=== PATIENT | female | born 1990 | race American Indian/Alaskan Native ===

== ENCOUNTER 2021-10-21 19:12 | Outpatient (CLI) | payer BC, MEDICAID ==
[2021-10-21 21:08] VITALS: BP 129/78
--- NOTE | 2021-10-21 23:27 | Ultrasound Report ---
US OB limited INDICATION / CLINICAL INFORMATION: Full FIDE, presentation COMPARISON: None available. TECHNIQUE: Using a transcutaneous probe, multiple grayscale, color Doppler, and spectral Doppler imag es of the uterus and fetus were captured and stored. FINDINGS: Clinical estimated gestational age based on last menstrual period of 01/18/2021 is 39 weeks 3 days. E DC 10/25/2021. A single cephalic fetus is presently heart rate 135 bpm. Amniotic fluid index is 8.4 cm, within normal limits. IMPRESSION: 1. Amniotic fluid index is within normal limits measuring 8.4 cm. 2. Single living fetus. Signer Name: Uriel Starr II, MD Signed: 10/21/2021 11:22 PM Workstation Name: [id number]
== END 2021-10-21 23:06 | disposition home or self-care (01) ==
LOC: TRG 19:12 → APU 20:57 → TRG 23:06
PROVIDERS: ATTEND Obstetrics & Gynecology
DX: O42.913 Preterm premature rupture of membranes, unspecified as to length of time between rupture and onset of labor, third trimester (principal); Z3A.35 35 weeks gestation of pregnancy
CPT/HCPCS: 36415; 76815; 84112

== ENCOUNTER 2021-10-22 18:17 | Inpatient (IN) | payer BC, MEDICAID ==
[2021-10-22] MEDS ORDERED: ONDANSETRON 4 MG/2 ML INJ IV PRN (20:49)
[2021-10-22] MEDS ORDERED: OXYTOCIN 10 UNIT/1 ML INJ IM PRN (20:49)
[2021-10-22] MEDS ORDERED: CARBOPROST TROMETHAMINE 250 MCG/1 ML INJ IM PRN (20:49)
[2021-10-22] MEDS ORDERED: LIDOCAINE (2%) 20 MG/1 ML VIAL 20 ML MDV INFILTRATI ONE (20:49)
[2021-10-22] MEDS ORDERED: miSOPROStol 200 MCG TAB PR PRN (20:49)
[2021-10-22] MEDS ORDERED: TERBUTALINE 1 MG/1 ML INJ SUB-Q PRN (20:49)
[2021-10-22] MEDS ORDERED: MINERAL OIL 30 ML ORAL LIQD PO PRN (20:49)
[2021-10-22] MEDS ORDERED: BUTORPHANOL 2 MG/1 ML INJ IV PRN (20:49)
[2021-10-22] MEDS ORDERED: LOPERAMIDE 2 MG CAP PO PRN (20:49)
[2021-10-22] MEDS ORDERED: ePHEDrine SULFATE 50 MG/1 ML INJ IV PRN (20:49)
[2021-10-22] MEDS ORDERED: ACETAMINOPHEN 325 MG TAB PO PRN (20:49)
[2021-10-22] MEDS ORDERED: fentaNYL 100 MCG/2 ML INJ IV PRN (20:49)
[2021-10-22] MEDS ORDERED: METHYLERGONOVINE MALEATE 0.2 MG/ML VIAL IM PRN (20:49)
[2021-10-22] MEDS ORDERED: OXYTOCIN DRIP 30 UNITS/500 ML BAG IV SCH ×2 (21:00)
--- NOTE | 2021-10-22 21:05 | History and Physical Report ---
History of Present Illness Date of examination: 10/22/21 Chief complaint: leaking fluid History of present illness: EDC Confirmation: 10/27/2021 Past History : 4 Spont. Ab: 2 # 1 Delivery date: 2006 Delivery type: EAB # 2 Delivery date: 2010 Delivery type: Delivery location: [place] Comments: No complications # 3 Delivery date: 2020 Delivery type: SAB Comments: Medical Past Medical History: Reviewed and updated today: Denies Past Surgical History: Reviewed and updated today: negative General Comments - FH: Mother- HTN Father- HTN, CHF () Risk Factors: Smoked Tobacco Use: Never smoker Smokeless Tobacco Use: Never Passive Smoke Exposure: no HIV High Risk Behavior: no Exercise: no Seatbelt Use: 100 % No Dietary Counseling Reason: pn yes Alcohol Use: no Drug Use: yes Drug of Choice: marijuana Past Medical History Anesthesia Complications: negative Anemia: negative Autoimmune Disorder: negative Bleeding Disorder: negative Blood Transfusions: negative Breast Disease: negative Diabetes: negative Heart Disease: negative Hypertension: negative Hepatitis/Liver Disease: negative Kidney Disease/UTI: negative Neurologic/Epilepsy/Migraines: negative Phlebitis/Varicosities: negative Psychiatric: negative Pulmonary Disease/Asthma: negative Thyroid Disease: negative Hospitalizations: negative Surgery (Non-director of guidance in public schools): negative Abnormal PAP: negative Uterine Anomaly: negative Uterine Surgery (not C/S): negative Family Hx: Mother- HTN Father- HTN, CHF () Infection History Hx of STD: none HIV Risk Eval: no Personal hx. of genital herpes: no Genetic History Congenital Heart Defect: Mom: no Dad: no David Disease: Mom: no Dad: no Thalassemia Mom: no Dad: no Neural Tube Defect Mom: no Dad: no Down's Syndrome Mom: no Dad: no Mateus-Sachs Mom: no Dad: no Sickle Cell Disease/Trait Mom: no Dad: no Hemophilia Mom: no Dad: no Muscular Dystrophy Mom: no Dad: no Cystic Fibrosis Mom: no Dad: no Gladwin Chorea Mom: no Dad: no Mental Retardation Mom: no Dad: no Fragile X Mom: no Dad: no Other Genetic/Chromosomal Disorder Mom: no Dad: no Child w/other defect Mom: no Dad: no Enviromental Exposures Xray Exposure: no Medication, drug, or alcohol use since LMP: no Chemical/Other Exposure: no Exposure to Cat Liter: no Hx of Parvovirus (Fifth Disease): no Occupational Exposure to Children: none Past History Past Medical History: other (see HPI) Past Surgical History: other (see HPI) 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: other (see HPI) Family/Genetic History: other (see HPI) - Obstetrical History Expected Date of Delivery: 10/27/21 Actual Gestation: 39 Week(s) 2 Day(s) : 4 Para: 1 Hx # Term Pregnancies: 1 Number of Pregnancies: 0 Spontaneous Abortions: 1 Induced : 1 Number of Living Children: 1 Medications and Allergies Allergies Allergy/AdvReac Type Severity Reaction Status Date / Time No Known Allergies Allergy Unverified 10/21/21 22:53 Active Meds: Active Medications Acetaminophen (Acetaminophen 325 Mg Tab) 650 mg PO Q4H PRN PRN Reason: Pain, Mild (1-3) Butorphanol Tartrate (Butorphanol 2 Mg/1 Ml Inj) 1 mg IV Q2H PRN PRN Reason: Pain, Moderate(4-6) LABOR PAIN Carboprost Tromethamine (Carboprost Tromethamine 250 Mcg/1 Ml Inj) 250 mcg IM ONCE PRN PRN Reason: Uterine Bleeding Ephedrine Sulfate (Ephedrine Sulfate 50 Mg/1 Ml Inj) 10 mg IV Q2M PRN PRN Reason: Hypotension Fentanyl (Fentanyl 100 Mcg/2 Ml Inj) 100 mcg IV Q2H PRN PRN Reason: Pain,Severe (7-10) LABOR PAIN Oxytocin/Sodium Chloride (Pitocin/Ns 30 Unit/500ml) 30 units in 500 mls @ 2 mls/hr IV TITR LORA; Protocol Lactated Ringer's (Lactated Ringers) 1,000 mls @ 125 mls/hr IV DIRECT LORA Oxytocin/Sodium Chloride (Pitocin/Ns 30 Unit/500ml) 30 units in 500 mls @ 40 mls/hr IV TITR LORA; Protocol Lidocaine (Lidocaine (2%) 20 Mg/1 Ml Vial 20 Ml Mdv) 20 ml INFILTRATI ONCE ONE Stop: 10/22/21 20:50 Loperamide HCl (Loperamide 2 Mg Cap) 2 mg PO ONCE PRN PRN Reason: give with Hemabate Methylergonovine Maleate (Methylergonovine Maleate 0.2 Mg/Ml Vial) 0.2 mg IM ONCE PRN PRN Reason: Uterine Bleeding Mineral Oil (Mineral Oil 30 Ml Oral Liqd) 30 ml PO QHS PRN PRN Reason: Constipation Misoprostol (Misoprostol 200 Mcg Tab) 800 mcg SD ONCE PRN PRN Reason: Uterine Bleeding Ondansetron HCl (Ondansetron 4 Mg/2 Ml Inj) 4 mg IV Q8H PRN PRN Reason: Nausea And Vomiting Oxytocin (Oxytocin 10 Unit/1 Ml Inj) 10 unit IM ONCE PRN PRN Reason: Uterine Bleeding Terbutaline Sulfate (Terbutaline 1 Mg/1 Ml Inj) 0.25 mg SUB-Q ONCE PRN PRN Reason: Hyperstimulation/Hypertonicity Review of Systems All systems: negative - Vital Signs Vital signs: Vital Signs Pulse BP 88 125/76 10/22/21 19:32 10/22/21 19:32 Temp Pulse Resp BP Pulse Ox 97.9 F 85 125/76 96 10/22/21 19:38 10/22/21 20:58 10/22/21 19:32 10/22/21 20:58 - Physical Exam Breasts: Positive: deferred Cardiovascular: Regular rate Lungs: Positive: Clear to auscultation, Normal air movement Abdomen: Positive: normal appearance, soft Genitourinary (Female): Positive: normal external genitalia, normal perenium Vulva: both: normal Vagina: Positive: normal moisture Extremities: Positive: normal - Obstetrical FHR: category 1 Uterine Contraction Monitor Mode: External Cervical Dilatation: 2 (Posterior) Cervical Effacement Percentage: 50 station: -2 Uterine Contraction Pattern: Irregular Uterine Contraction Intensity: Mild Results Abnormal lab results 10/22/21 Range/Units 19:42 Membranes Rupture Positive A (Negative) All other labs normal. Assessment and Plan 31y/o @ 39+ weeks c/o leaking fluid x 24hrs. Pt seen in triage yesterday with NEG rom plus and normal FIDE. She is admitted tonight with SROM - no obvious signs of rupture but ROM plus POS. SVE done with scant clear fluid. GBS +. records printed to L&D unit. Admission orders in EMR. Will start pitocin to augment labor d/t SROM of unknown time. All questions addressed with patient, Epidural PRN. - Patient Problems (1) Positive GBS test Current Visit: Yes Status: Acute (2) SROM (spontaneous rupture of membranes) Current Visit: Yes Status: Acute Plan to address problem: Amp q4hrs until delivery Limit SVEs Monitor temp per protocol (3) 39 weeks gestation of Current Visit: Yes Status: Acute
[2021-10-22 21:35] LABS: Hematocrit 37.7 % (30.3-42.9); Hemoglobin 12.5 gm/dl (10.1-14.3); Mean Corpuscular HGB Conc 33 % (30-34); Mean Corpuscular Volume 92 fl (79-97); Platelet Count 237 K/mm3 (140-440); Red Blood Count 4.11 M/mm3 (3.65-5.03); Red Cell Distribution Width 14.7 % (13.2-15.2)
[2021-10-22] MEDS ORDERED: AMPICILLIN/NS 2 GM/100 ML 2 GM/100 ML BAG IV ONE (22:00)
[2021-10-22] MEDS: LACTATED RINGERS 1,000 ML IV SCH (23:09)
[2021-10-23] MEDS: AMPICILLIN/NS 1 GM/50 ML 1 GM/50 ML BAG IV SCH ×2 (06:10→10:35)
--- NOTE | 2021-10-23 07:23 | Progress Note ---
Assessment and Plan A: 31 y.o. @ 39.3 wks, unknown SROM time. - Patient Problems (1) 39 weeks gestation of Current Visit: Yes Status: Acute Plan to address problem: Continue to monitor status through EFM. (2) SROM (spontaneous rupture of membranes) Current Visit: Yes Status: Acute Plan to address problem: Continue to monitor maternal temperatures. Limit vaginal exams. Continue to monitor progress of labor. Increase Pitocin per protocol. Subjective - Subjective Date of service: 10/23/21 Principal diagnosis: IUP @ 39.3 wks, SROM Interval history: Currently not in pain. Not feeling contractions. Patient reports: loss of fluid, vaginal bleeding (Describes as spotting. ) Objective - Vital Signs Vital Signs: Vital Signs - 12hr 10/22/21 10/22/21 10/22/21 19:32 19:33 19:38 Temperature 97.9 F Pulse Rate 88 91 H 89 Respiratory Rate Blood Pressure 125/76 O2 Sat by Pulse 96 96 Oximetry O2 Sat by Pulse Oximetry [ Bilateral] 10/22/21 10/22/21 10/22/21 19:43 19:48 19:53 Temperature Pulse Rate 86 91 H 92 H Respiratory Rate Blood Pressure O2 Sat by Pulse 97 96 96 Oximetry O2 Sat by Pulse Oximetry [ Bilateral] 10/22/21 10/22/21 10/22/21 19:58 20:03 20:08 Temperature Pulse Rate 87 83 87 Respiratory Rate Blood Pressure O2 Sat by Pulse 95 96 96 Oximetry O2 Sat by Pulse Oximetry [ Bilateral] 10/22/21 10/22/21 10/22/21 20:13 20:18 20:23 Temperature Pulse Rate 89 85 84 Respiratory Rate Blood Pressure O2 Sat by Pulse 95 96 97 Oximetry O2 Sat by Pulse Oximetry [ Bilateral] 10/22/21 10/22/21 10/22/21 20:28 20:29 20:33 Temperature Pulse Rate 84 96 H 86 Respiratory Rate Blood Pressure O2 Sat by Pulse 95 93 95 Oximetry O2 Sat by Pulse Oximetry [ Bilateral] 10/22/21 10/22/21 10/22/21 20:43 20:47 20:48 Temperature Pulse Rate 82 85 86 Respiratory Rate Blood Pressure O2 Sat by Pulse 96 94 96 Oximetry O2 Sat by Pulse Oximetry [ Bilateral] 10/22/21 10/22/21 10/22/21 20:53 20:58 21:03 Temperature Pulse Rate 88 85 90 Respiratory Rate Blood Pressure O2 Sat by Pulse 96 96 97 Oximetry O2 Sat by Pulse Oximetry [ Bilateral] 10/22/21 10/22/21 10/22/21 21:08 21:13 21:18 Temperature Pulse Rate 88 85 85 Respiratory Rate Blood Pressure O2 Sat by Pulse 97 96 97 Oximetry O2 Sat by Pulse Oximetry [ Bilateral] 10/22/21 10/22/21 10/22/21 21:23 21:28 21:33 Temperature Pulse Rate 90 90 86 Respiratory Rate Blood Pressure O2 Sat by Pulse 96 98 97 Oximetry O2 Sat by Pulse Oximetry [ Bilateral] 10/22/21 10/22/21 10/22/21 21:38 21:43 21:48 Temperature Pulse Rate 87 86 88 Respiratory Rate Blood Pressure O2 Sat by Pulse 97 97 97 Oximetry O2 Sat by Pulse Oximetry [ Bilateral] 10/22/21 10/22/21 10/22/21 21:53 21:58 22:03 Temperature Pulse Rate 91 H 85 86 Respiratory Rate Blood Pressure O2 Sat by Pulse 96 96 95 Oximetry O2 Sat by Pulse Oximetry [ Bilateral] 10/22/21 10/22/21 10/23/21 22:08 23:14 00:21 Temperature 98.4 F Pulse Rate 93 H 75 Respiratory 16 Rate Blood Pressure O2 Sat by Pulse 95 96 96 Oximetry O2 Sat by Pulse 95 Oximetry [ Bilateral] 10/23/21 10/23/21 10/23/21 00:26 00:31 00:36 Temperature Pulse Rate 82 80 76 Respiratory Rate Blood Pressure O2 Sat by Pulse 94 97 96 Oximetry O2 Sat by Pulse Oximetry [ Bilateral] 10/23/21 10/23/21 10/23/21 00:41 00:46 00:51 Temperature Pulse Rate 76 82 76 Respiratory Rate Blood Pressure O2 Sat by Pulse 97 96 96 Oximetry O2 Sat by Pulse Oximetry [ Bilateral] 10/23/21 10/23/21 10/23/21 00:56 01:01 01:06 Temperature Pulse Rate 82 76 77 Respiratory Rate Blood Pressure O2 Sat by Pulse 97 96 96 Oximetry O2 Sat by Pulse Oximetry [ Bilateral] 10/23/21 10/23/21 10/23/21 01:11 01:16 01:21 Temperature Pulse Rate 76 76 74 Respiratory Rate Blood Pressure O2 Sat by Pulse 97 96 97 Oximetry O2 Sat by Pulse Oximetry [ Bilateral] 10/23/21 10/23/21 10/23/21 01:26 01:31 01:32 Temperature Pulse Rate 69 83 75 Respiratory Rate Blood Pressure O2 Sat by Pulse 96 96 94 Oximetry O2 Sat by Pulse Oximetry [ Bilateral] 10/23/21 10/23/21 10/23/21 01:36 01:41 01:58 Temperature Pulse Rate 76 73 78 Respiratory Rate Blood Pressure O2 Sat by Pulse 96 95 95 Oximetry O2 Sat by Pulse Oximetry [ Bilateral] 10/23/21 10/23/21 10/23/21 02:01 02:03 02:08 Temperature Pulse Rate 71 73 75 Respiratory Rate Blood Pressure O2 Sat by Pulse 94 97 96 Oximetry O2 Sat by Pulse Oximetry [ Bilateral] 10/23/21 10/23/21 10/23/21 02:13 02:18 02:23 Temperature Pulse Rate 70 70 87 Respiratory Rate Blood Pressure O2 Sat by Pulse 97 96 96 Oximetry O2 Sat by Pulse Oximetry [ Bilateral] 10/23/21 10/23/21 10/23/21 02:28 02:33 02:34 Temperature Pulse Rate 73 75 79 Respiratory Rate Blood Pressure O2 Sat by Pulse 96 94 94 Oximetry O2 Sat by Pulse Oximetry [ Bilateral] 10/23/21 10/23/21 10/23/21 02:38 02:39 02:43 Temperature Pulse Rate 74 82 66 Respiratory Rate Blood Pressure O2 Sat by Pulse 95 93 95 Oximetry O2 Sat by Pulse Oximetry [ Bilateral] 10/23/21 10/23/21 10/23/21 02:44 02:48 02:50 Temperature Pulse Rate 68 70 70 Respiratory Rate Blood Pressure O2 Sat by Pulse 94 95 94 Oximetry O2 Sat by Pulse Oximetry [ Bilateral] 10/23/21 10/23/21 10/23/21 02:53 02:58 03:03 Temperature Pulse Rate 69 71 67 Respiratory Rate Blood Pressure O2 Sat by Pulse 95 95 96 Oximetry O2 Sat by Pulse Oximetry [ Bilateral] 10/23/21 10/23/21 10/23/21 03:08 03:13 03:18 Temperature Pulse Rate 69 69 72 Respiratory Rate Blood Pressure O2 Sat by Pulse 96 95 95 Oximetry O2 Sat by Pulse Oximetry [ Bilateral] 10/23/21 10/23/21 10/23/21 03:23 03:28 03:33 Temperature Pulse Rate 69 70 71 Respiratory Rate Blood Pressure O2 Sat by Pulse 96 96 96 Oximetry O2 Sat by Pulse Oximetry [ Bilateral] 10/23/21 10/23/21 10/23/21 03:38 03:43 03:48 Temperature Pulse Rate 70 74 75 Respiratory Rate Blood Pressure O2 Sat by Pulse 97 96 96 Oximetry O2 Sat by Pulse Oximetry [ Bilateral] 10/23/21 10/23/21 10/23/21 03:49 03:53 03:58 Temperature Pulse Rate 73 69 72 Respiratory Rate Blood Pressure O2 Sat by Pulse 94 96 96 Oximetry O2 Sat by Pulse Oximetry [ Bilateral] 10/23/21 10/23/21 10/23/21 04:03 04:08 04:13 Temperature Pulse Rate 73 69 67 Respiratory Rate Blood Pressure O2 Sat by Pulse 97 97 97 Oximetry O2 Sat by Pulse Oximetry [ Bilateral] 10/23/21 10/23/21 10/23/21 04:18 04:23 04:28 Temperature Pulse Rate 70 69 68 Respiratory Rate Blood Pressure O2 Sat by Pulse 96 96 97 Oximetry O2 Sat by Pulse Oximetry [ Bilateral] 10/23/21 10/23/21 10/23/21 04:33 04:38 04:43 Temperature Pulse Rate 72 68 84 Respiratory Rate Blood Pressure O2 Sat by Pulse 96 96 95 Oximetry O2 Sat by Pulse Oximetry [ Bilateral] 10/23/21 10/23/21 10/23/21 04:44 04:48 04:50 Temperature Pulse Rate 78 68 76 Respiratory Rate Blood Pressure O2 Sat by Pulse 94 94 93 Oximetry O2 Sat by Pulse Oximetry [ Bilateral] 10/23/21 10/23/21 10/23/21 04:53 04:58 05:03 Temperature Pulse Rate 67 65 66 Respiratory Rate Blood Pressure O2 Sat by Pulse 92 95 94 Oximetry O2 Sat by Pulse Oximetry [ Bilateral] 10/23/21 10/23/21 10/23/21 05:06 05:08 05:12 Temperature Pulse Rate 69 68 69 Respiratory Rate Blood Pressure O2 Sat by Pulse 94 95 94 Oximetry O2 Sat by Pulse Oximetry [ Bilateral] 10/23/21 10/23/21 10/23/21 05:13 05:17 05:18 Temperature Pulse Rate 68 68 69 Respiratory Rate Blood Pressure O2 Sat by Pulse 95 94 94 Oximetry O2 Sat by Pulse Oximetry [ Bilateral] 10/23/21 10/23/21 10/23/21 05:23 05:28 05:33 Temperature Pulse Rate 75 69 73 Respiratory Rate Blood Pressure O2 Sat by Pulse 94 95 97 Oximetry O2 Sat by Pulse Oximetry [ Bilateral] 10/23/21 10/23/21 10/23/21 05:38 05:43 05:48 Temperature Pulse Rate 74 73 76 Respiratory Rate Blood Pressure O2 Sat by Pulse 97 97 97 Oximetry O2 Sat by Pulse Oximetry [ Bilateral] 10/23/21 10/23/21 10/23/21 05:59 06:04 06:09 Temperature Pulse Rate 82 70 68 Respiratory Rate Blood Pressure 134/79 O2 Sat by Pulse 95 98 97 Oximetry O2 Sat by Pulse Oximetry [ Bilateral] 10/23/21 10/23/21 10/23/21 06:14 06:19 06:20 Temperature Pulse Rate 73 80 72 Respiratory Rate Blood Pressure O2 Sat by Pulse 98 90 96 Oximetry O2 Sat by Pulse Oximetry [ Bilateral] 10/23/21 10/23/21 10/23/21 06:25 06:30 06:35 Temperature Pulse Rate 78 74 71 Respiratory Rate Blood Pressure O2 Sat by Pulse 97 96 96 Oximetry O2 Sat by Pulse Oximetry [ Bilateral] 10/23/21 10/23/21 10/23/21 06:40 06:45 06:50 Temperature Pulse Rate 75 76 84 Respiratory Rate Blood Pressure O2 Sat by Pulse 96 97 95 Oximetry O2 Sat by Pulse Oximetry [ Bilateral] 10/23/21 10/23/21 10/23/21 06:53 06:55 06:58 Temperature Pulse Rate 88 74 77 Respiratory Rate Blood Pressure O2 Sat by Pulse 93 95 94 Oximetry O2 Sat by Pulse Oximetry [ Bilateral] 10/23/21 10/23/21 10/23/21 07:00 07:04 07:05 Temperature Pulse Rate 73 75 70 Respiratory Rate Blood Pressure O2 Sat by Pulse 94 94 96 Oximetry O2 Sat by Pulse Oximetry [ Bilateral] 10/23/21 10/23/21 10/23/21 07:10 07:15 07:20 Temperature Pulse Rate 76 74 74 Respiratory Rate Blood Pressure O2 Sat by Pulse 94 94 96 Oximetry O2 Sat by Pulse Oximetry [ Bilateral] - Exam Cardiovascular: Regular rate Lungs: Normal air movement Abdomen: Present: normal appearance, soft FHR: category 1 Uterine Contraction Monitor Mode: External Cervical Dilatation: 2 (Per shift supervisor rn RN) Cervical Effacement Percentage: 50 station: -2 Uterine Contraction Frequency (min): q 6 minutes Uterine Contraction Pattern: Regular Extremities: normal - Labs Labs: Abnormal Labs 10/22/21 19:42 Membranes Rupture Positive A Laboratory Results - last 24 hr 10/22/21 10/22/21 10/22/21 19:42 21:03 21:03 WBC 9.0 RBC 4.11 Hgb 12.5 Hct 37.7 MCV 92 MCH 30 MCHC 33 RDW 14.7 Plt Count 237 Membranes Rupture Positive A Syphilis IgG/IgM Ab Nonreactive Blood Type Antibody Screen 10/22/21 21:03 WBC RBC Hgb Hct MCV MCH MCHC RDW Plt Count Membranes Rupture Syphilis IgG/IgM Ab Blood Type B POSITIVE Antibody Screen Negative
[2021-10-23] MEDS: LACTATED RINGERS 1,000 ML IV SCH (09:04)
--- NOTE | 2021-10-23 11:06 | Event Note ---
Date: 10/23/21 Pt with c/o contraction pain. Requesting pain medication. Cervical exam /. IV pain medication to be administered as ordered. Increase Pitocin as ordered. Epidural to be placed if IV pain medication does not relieve pain. Continue to increase Pitocin per protocol.
--- NOTE | 2021-10-23 12:47 | Procedure Note ---
OB Delivery Note - Delivery Date of Delivery: 10/23/21 Certified Tumor Registrar: WADE RUSSO Estimated blood loss: 200cc - Vaginal Delivery presentation: vertex Delivery position: OA Intrapartum events: PROM->1hr before delivery Delivery induction: none Delivery augmentation: pitocin Delivery monitor: external FHT, external uterine Route of delivery: Delivery placenta: spontaneous Delivery cord: 3 umbilical vessels Delivery laceration: 1st degree (Hemostatic, no repair needed. ) Anesthesia: intravenous Delivery comments: Was called to room by RN d/t imminent delivery. Upon entering room, BBOW seen coming through introitus. AROM for forebag for clear fluid. of viable female . to mother's abdomen for skin to skin. Cord clamped. Cut by FOC. Spontaneous delivery of placenta on Taylor side, intact, complete, 3 vessels noted. Perineum and vagina inspected, 1st degree noted, hemostatic, no repair needed. Fundus firm, minimal bleeding noted. Fundus firm, minimal bleeding noted. Blood loss: 200ml. Apgars 8,9. weight 7-4. Sponges and instruments counted with RN X 2 and correct X2. and mother left in stable condition in care of RN. - A at 1 minute: 8 at 5 minutes: 9 (7-4) Gender: Female
[2021-10-23] MEDS ORDERED: ACETAMINOPHEN 500 MG TAB PO PRN (14:00)
[2021-10-23] MEDS ORDERED: BENZOCAINE/MENTHOL 20/0.5% TOP SPRAY 56 GM TP PRN (15:34)
[2021-10-23] MEDS ORDERED: LANOLIN/ZINC/DIMETHICONE (LANSINOH) 7 GM TP PRN ×2 (15:34)
[2021-10-23] MEDS ORDERED: oxyCODONE /ACETAMINOPHEN 5-325MG TAB PO PRN (15:34)
[2021-10-23] MEDS ORDERED: diphenhydrAMINE 25 MG CAP PO PRN (15:34)
[2021-10-23] MEDS ORDERED: ONDANSETRON 4 MG/2 ML INJ IV PRN (15:34)
[2021-10-23] MEDS ORDERED: ACETAMINOPHEN 325 MG TAB PO PRN (15:34)
[2021-10-23] MEDS ORDERED: OXYTOCIN DRIP 30 UNITS/500 ML BAG IV SCH (15:34)
[2021-10-23] MEDS ORDERED: MAGNESIUM HYDROXIDE (MOM) ORAL LIQD UDC PO PRN (15:34)
[2021-10-23] MEDS ORDERED: miSOPROStol 100 MCG TAB PR PRN (15:34)
[2021-10-23] MEDS ORDERED: PROMETHAZINE 25 MG RECT SUPP PR PRN (15:34)
[2021-10-23] MEDS ORDERED: WITCH HAZEL/ GLYCERIN PAD TP PRN (15:34)
[2021-10-23] MEDS ORDERED: PROMETHAZINE 25 MG TAB PO PRN (15:34)
[2021-10-23] MEDS: IBUPROFEN 800 MG TAB PO SCH ×2 (16:31→23:56)
[2021-10-23] MEDS: DOCUSATE SODIUM 100 MG CAP PO SCH (23:56)
[2021-10-24 01:32] LABS: Hematocrit 36.9 % (30.3-42.9); Hemoglobin 11.9 gm/dl (10.1-14.3)
--- NOTE | 2021-10-24 08:07 | Discharge Summary ---
Providers - Providers Date of Admission: 10/22/21 20:49 Date of discharge: 10/24/21 Attending physician: NADIA WYLIE 10/23/21 14:51 Consult to Spice Miller [CONS] Routine Reason For Exam: 10/23/21 15:34 Consult to Spice Miller [CONS] Routine Reason For Exam: assistance with , SNS Primary care physician: NADIA WYLIE Hospitalization Reason for admission: Labor, SROM Condition: Good Pertinent studies: post delivery H&H 11.9/36.9 Procedures: Hospital course: uncomplicated and course Disposition: HOME / SELF CARE / HOMELESS Final Discharge Diagnosis (Prints w/discharge instructions): vaginal Time spent for discharge: 15 - Discharge Diagnoses (1) (normal spontaneous vaginal delivery) Status: Acute Core Measure Documentation - Palliative Care Palliative Care/ Comfort Measures: Not Applicable - Core Measures Any of the following diagnoses?: none Exam - Constitutional Vitals: Temp Pulse Resp BP Pulse Ox 98.5 F 77 20 112/76 97 10/24/21 00:57 10/24/21 00:57 10/24/21 00:57 10/24/21 00:57 10/24/21 00:57 General appearance: Present: no acute distress, well-nourished - EENT Eyes: Present: PERRL ENT: hearing intact, clear oral mucosa - Neck Neck: Present: supple, normal ROM - Respiratory Respiratory effort: normal Respiratory: bilateral: CTA - Cardiovascular Rhythm: regular Heart Sounds: Absent: rub, click - Extremities Extremities: No edema Peripheral Pulses: within normal limits - Abdominal General gastrointestinal: Present: soft, non-tender, non-distended, normal bowel sounds Female genitourinary: Present: normal - Integumentary Integumentary: Present: clear, warm, dry - Musculoskeletal Musculoskeletal: gait normal, strength equal bilaterally - Psychiatric Psychiatric: appropriate mood/affect, intact judgment & insight - Neurologic Neurologic: CNII-XII intact, moves all extremities - Additional findings Additional findings: lochia scant, fundus firm, Plan Activity: no restrictions Diet: regular Follow up with: NADIA WYLIE MD [Primary Care Provider] - 6 Weeks (Congratulations! Please call [phone] to schedule your visit in 4-6 weeks. call for any questions or concerns. ) Prescriptions: Ibuprofen [Motrin] 800 mg PO Q8HR PRN #20 tablet PRN Reason: Pain, Moderate (4-6)
[2021-10-24] MEDS ORDERED: PRENATAL VIT27-FE FUMARATE-FOLIC ACID VIT TAB PO SCH (10:00)
[2021-10-24] MEDS: DOCUSATE SODIUM 100 MG CAP PO SCH (11:25)
[2021-10-24] MEDS: IBUPROFEN 800 MG TAB PO SCH (11:28)
[2021-10-24] MEDS ORDERED: TETANUS,DIPH,PERTUSS(ACELL) VACCINE 0.5 ML SYRINGE IM ONE (12:49)
[2021-10-24 12:55] VITALS: BP 117/67
== END 2021-10-24 18:37 | disposition home or self-care (01) | DRG 807 ==
LOC: TRG 18:17 → APU 18:17 → LD 20:49 → TRG 20:49 → OB 10-23 15:17
PROVIDERS: ADMIT Obstetrics & Gynecology; ATTEND Obstetrics & Gynecology
PROC: 10907ZC Drainage of Amniotic Fluid, Therapeutic from Products of Conception, Via Natural or Artificial Opening (ICD-10-PCS; principal; 2021-10-23)
PROC: 10E0XZZ Delivery of Products of Conception, External Approach (ICD-10-PCS; 2021-10-23)
PROC: 3E0234Z Introduction of Serum, Toxoid and Vaccine into Muscle, Percutaneous Approach (ICD-10-PCS; 2021-10-24)
DX: O42.02 Full-term premature rupture of membranes, onset of labor within 24 hours of rupture (principal); Z37.0 Single live birth; O99.824 Streptococcus B carrier state complicating childbirth; O70.0 First degree perineal laceration during delivery; Z3A.39 39 weeks gestation of pregnancy; Z20.822 Contact with and (suspected) exposure to COVID-19; Z23 Encounter for immunization
CPT/HCPCS: 36415; 76815; 84112; 85014; 85018; 85027; 86592; 86850; 86900; 86901; 90471; 90715; G0378; J0290; J0595; J2590; J3010; J7120; U0003